=== PATIENT | male | born 1950 | race Caucasian/White ===

== ENCOUNTER 2018-05-04 05:45 | Day surgery (SDC) | payer MEDICARE, OTHER ==
[~2018-05-04] VITALS: Ht 185.4 cm; Wt 73.6 kg
--- NOTE | ~2018-05-04 | OP ---
PATIENT NAME: DERRICK TORRES MEDICAL RECORD: [id number] :54 LOCATION:D[facility] ADMISSION DATE: SURGEON: CASEY ESPARZA MD DATE OF OPERATION: 05/04/2018 SURGEON: Casey Esparza MD ANESTHESIA: MAC by Lion Pereira CRNA. PREOPERATIVE DIAGNOSIS: Elevated PSA of 4.9. PROCEDURE: Transrectal ultrasound and prostate biopsy. FINDINGS: 29 gram prostate. Extensive hypoechoic areas at bilateral bases. Large collection of prostatic stones at the left base. BLOOD LOSS: None. CLINICAL HISTORY: This is a 67-year-old male, who was recently found to have an elevated PSA level of 4.9. He does not have a family history of prostate cancer. He comes today to have a prostate biopsy performed. He is allergic to PENICILLIN, PHENERGAN, and PROPRANOLOL. He was given IV Levaquin condenser tester to the OR. DESCRIPTION OF PROCEDURE: The patient was given IV sedation. He was placed into dorsal lithotomy position. The transrectal ultrasound probe was introduced. We identified the prostate size at 29 grams. Extensive hypoechoic areas were noted in both bases of the prostate. There was also an extensive layer of prostatic stones on the left base. Sextant biopsies were obtained with at least 3 cores from each sextant. I tried to target the hypoechoic area specifically during the biopsy process. Once all the specimens were obtained, the procedure was terminated. The patient was brought back to his preoperative holding area. I will see him in followup next week to review the pathology results with him. TRANSINT:[id number] Voice Confirmation ID: [id number] DOCUMENT ID: [id number] CASEY ESPARZA MD at 1532 CC: [id number] DICTATION DATE: 05/04/18904 WRIST CLOSER: 05/04/18 1141 [facility] 05/04/18 [place] [id number] [place] [id number]
[~2018-05-04 05:45] MED LIST: BACTRIM DS TABL1 TAB; BACTROBAN 22 GM22 GM TOPICAL; BREO ELLIPTA 11 EACH INH; CATAPRES0.1 MG PO; ENDOCET 10-3251 TAB; HYDROCODONE-APA1 TAB; LEVAQUIN750 MG PO; NORCO 7.5/325 T1 TA1 PO; PROAIR HFA8.5 GM INH; PROPRANOLOL HCL20 MG PO; VIBRAMYCIN 100100 MG PO
[2018-05-04 06:23] LABS: HEMATOCRIT 36.9 % (42.0-54.0); HEMOGLOBIN 12.1 g/dL (13.5-17.5); MCH 28.2 pg (26.0-34.0); MCHC 32.8 g/dL (31.0-37.0); MEAN PLATELET VOLUME 11.3 fL (7.4-10.4); RBC 4.29 10x6/uL (4.20-6.10)
[2018-05-04] MEDS ORDERED: BACTRIM DS TABL1 TAB PO (07:38)
[2018-05-04] MEDS ORDERED: HYDROCODONE-APA1 TAB PO (07:40)
[2018-05-04 07:53] VITALS: BP 111/73; Ht 185.4 cm; Wt 73.6 kg
== END 2018-05-04 09:45 | disposition home or self-care (01) ==
LOC: D.OPS 05:45 → D.PAN 08:05 → D.OPS 08:15
PROVIDERS: Anesthesiology
DX: R97.20 Elevated prostate specific antigen [PSA] (principal)

== ENCOUNTER → 2018-06-09 11:09 | Outpatient (CLI) | payer MEDICARE, OTHER ==
[2018-05-04 07:53] VITALS: BMI 21.4
[~2018-06-09 11:09] MED LIST changes: +BACTRIM DS TABL1 TAB PO; +HYDROCODONE-APA1 TAB PO
== END | disposition home or self-care (01) ==
LOC: D.CT 11:09
DX: R63.4 Abnormal weight loss (principal)

== ENCOUNTER 2019-01-12 14:37 | Inpatient (IN) | payer MEDICARE, OTHER ==
[2019-01-12] VITALS (8 sets, daily range): BP systolic 163–198; BP diastolic 63–78; BMI 21.8
[2019-01-12] MEDS ORDERED: FLOMAX0.4 MG PO (14:43)
[2019-01-12 15:31] LABS: BASOPHILS 0.3 % (0-2); EOSINOPHILS 0 % (0-7); HEMATOCRIT 40.9 % (42.0-54.0); HEMOGLOBIN 13.9 g/dL (13.5-17.5); IMMATURE GRANULOCYTES 9.4 % (0-5); LYMPHOCYTES 9.7 % (15-50); MCH 28.8 pg (26.0-34.0); MCV 84.7 fL (80.0-100.0); MEAN PLATELET VOLUME 11.4 fL (7.4-10.4); NEUTROPHILS 59.6 % (40-80); RBC 4.83 10x6/uL (4.20-6.10); RDW 15.6 % (11.5-14.5); WBC 14.3 10x3/uL (4.8-10.8)
[2019-01-12 15:32] LABS: PLATELET COUNT 145 10x3/uL (130-400)
[2019-01-12 16:17] LABS: ALBUMIN 4.5 g/dL (3.4-5.0); ALKALINE PHOSPHATASE 76 U/L (46-116); ALT (SGPT) 28 U/L (10-68); AMYLASE - SERUM 55 U/L (25-115); BILIRUBIN - TOTAL 0.97 mg/dL (0.2-1.3); CALC OSMOLALITY 281 mosm/kg (275-300); CARBON DIOXIDE 24.2 mmol/L (21.0-32.0); CHLORIDE - SERUM 103 mmol/L (98-107); GLUCOSE 107 mg/dL (74-106); LIPASE 75 U/L (73-393); POTASSIUM - SERUM 3.4 mmol/L (3.5-5.1); PROTEIN - SERUM 8.5 g/dL (6.4-8.2); SODIUM 140 mmol/L (136-145); UREA NITROGEN 20 mg/dL (7-18); eGFR NON AFRICAN AMERICAN 79 mL/min (90-120)
[2019-01-12 16:18] LABS: TROPONIN-I < 0.017 ng/mL (0.000-0.060)
[2019-01-12 16:40] LABS: APPEARANCE CLEAR (CLEAR); BILIRUBIN NEGATIVE (NEGATIVE); COLOR STRAW (YELLOW); GLUCOSE NEGATIVE (NEGATIVE); KETONE SMALL mg/dL (NEGATIVE); NITRITE NEGATIVE (NEGATIVE); PROTEIN NEGATIVE (NEGATIVE); UROBILINOGEN NORMAL (NORMAL)
[2019-01-12 16:42] LABS: AMORPHOUS SEDIMENT >1+ /lpf (NONE SEEN); BACTERIA FEW /hpf (NONE SEEN); EPITHELIAL CELLS NSEEN /hpf (0-5); RED CELLS - URINE 0-5 /hpf (0-5); WHITE CELLS - URINE 0-5 /hpf (0-5)
[2019-01-12] MEDS ORDERED: ZOFRAN8 MG PO (18:37)
[2019-01-13] VITALS: BP 144/60
[2019-01-13 04:00] VITALS: BP 108/51
[2019-01-13 06:40] LABS: CALC OSMOLALITY 285 mosm/kg (275-300); CALCIUM 8.2 mg/dL (8.5-10.1); CARBON DIOXIDE 22.3 mmol/L (21.0-32.0); CHLORIDE - SERUM 109 mmol/L (98-107); CREATININE - SERUM 0.9 mg/dL (0.6-1.3); GLUCOSE 101 mg/dL (74-106); POTASSIUM - SERUM 3.2 mmol/L (3.5-5.1); SODIUM 143 mmol/L (136-145); eGFR NON AFRICAN AMERICAN 90 mL/min (90-120)
[2019-01-13 06:47] LABS: HEMATOCRIT 37.4 % (42.0-54.0); HEMOGLOBIN 12.7 g/dL (13.5-17.5); MCH 28.9 pg (26.0-34.0); MCV 85.2 fL (80.0-100.0); MEAN PLATELET VOLUME 11.8 fL (7.4-10.4); PLATELET COUNT 102 10x3/uL (130-400); RBC 4.39 10x6/uL (4.20-6.10); UREA NITROGEN 14 mg/dL (7-18); WBC 34.8 10x3/uL (4.8-10.8)
[2019-01-13 08:10] LABS: LYMPHOCYTES 8 % (15-50); MONOCYTES 11 % (2-11); NEUTROPHILS 69 % (40-80); PLATELET ESTIMATE DECREASED; PLATELET MORPHOLOGY GIANT PLTS PRESENT
[2019-01-13 08:11] LABS: SMUDGE CELLS 2+; TEAR DROP CELLS 2+
[2019-01-13 08:44] VITALS: BP 137/58
[2019-01-13 12:21] LABS: BASOPHILS 0.4 % (0-2); EOSINOPHILS 0 % (0-7); HEMATOCRIT 35.2 % (42.0-54.0); IMMATURE GRANULOCYTES 11.9 % (0-5); LYMPHOCYTES 7.5 % (15-50); MCHC 34.1 g/dL (31.0-37.0); MEAN PLATELET VOLUME 11.4 fL (7.4-10.4); MONOCYTES 26.8 % (2-11); NEUTROPHILS 53.4 % (40-80); PLATELET COUNT 109 10x3/uL (130-400); RBC 4.14 10x6/uL (4.20-6.10); RDW 15.9 % (11.5-14.5); WBC 27.2 10x3/uL (4.8-10.8)
[2019-01-13 12:35] LABS: ALBUMIN 3.5 g/dL (3.4-5.0); ALKALINE PHOSPHATASE 58 U/L (46-116); BILIRUBIN - TOTAL 0.82 mg/dL (0.2-1.3); CALC OSMOLALITY 282 mosm/kg (275-300); CALCIUM 7.9 mg/dL (8.5-10.1); CARBON DIOXIDE 21.8 mmol/L (21.0-32.0); CHLORIDE - SERUM 109 mmol/L (98-107); CREATININE - SERUM 0.8 mg/dL (0.6-1.3); GLUCOSE 114 mg/dL (74-106); PROTEIN - SERUM 6.6 g/dL (6.4-8.2); SODIUM 141 mmol/L (136-145); UREA NITROGEN 15 mg/dL (7-18); eGFR NON AFRICAN AMERICAN > 90 mL/min (90-120)
[2019-01-13 12:36] LABS: ALT (SGPT) 20 U/L (10-68); POTASSIUM - SERUM 3.7 mmol/L (3.5-5.1)
[2019-01-13 12:48] VITALS: BP 97/62
[2019-01-13 13:19] LABS: COLOR YELLOW (YELLOW)
[2019-01-13 13:20] LABS: APPEARANCE CLEAR (CLEAR); BILIRUBIN NEGATIVE (NEGATIVE); GLUCOSE 50 mg/dL (NEGATIVE); KETONE MODERATE mg/dL (NEGATIVE); NITRITE NEGATIVE (NEGATIVE); PROTEIN TRACE mg/dL (NEGATIVE); UROBILINOGEN NORMAL (NORMAL)
[2019-01-13 13:21] LABS: AMORPHOUS SEDIMENT <1+ /lpf (NONE SEEN); RED CELLS - URINE 0-5 /hpf (0-5)
[2019-01-13 16:17] VITALS: BP 137/60
[2019-01-13 19:56] VITALS: BP 152/73
[2019-01-14 05:33] LABS: HEMATOCRIT 34.9 % (42.0-54.0); HEMOGLOBIN 11.8 g/dL (13.5-17.5); MCHC 33.8 g/dL (31.0-37.0); MCV 85.7 fL (80.0-100.0); MEAN PLATELET VOLUME 11.4 fL (7.4-10.4); PLATELET COUNT 102 10x3/uL (130-400); RBC 4.07 10x6/uL (4.20-6.10); RDW 16.1 % (11.5-14.5); WBC 13.2 10x3/uL (4.8-10.8)
[2019-01-14 05:44] LABS: ALBUMIN 3.4 g/dL (3.4-5.0); ALKALINE PHOSPHATASE 51 U/L (46-116); ALT (SGPT) 16 U/L (10-68); BILIRUBIN - TOTAL 0.74 mg/dL (0.2-1.3); CALC OSMOLALITY 283 mosm/kg (275-300); CHLORIDE - SERUM 110 mmol/L (98-107); CREATININE - SERUM 0.8 mg/dL (0.6-1.3); GLUCOSE 88 mg/dL (74-106); PROTEIN - SERUM 6.5 g/dL (6.4-8.2); SODIUM 143 mmol/L (136-145); UREA NITROGEN 12 mg/dL (7-18); eGFR NON AFRICAN AMERICAN > 90 mL/min (90-120)
[2019-01-14 07:40] LABS: EOSINOPHILS 1 % (0-7); LYMPHOCYTES 7 % (15-50); MONOCYTES 11 % (2-11); NEUTROPHILS 52 % (40-80); PLATELET ESTIMATE DECREASED
[2019-01-14 08:59] VITALS: BP 158/69
[2019-01-14] MEDS ORDERED: PROTONIX40 MG PO (10:06)
[2019-01-14] MEDS ORDERED: DOXYCYCLINE HY100 M2 PO (10:06)
[2019-01-14] MEDS ORDERED: FLORAJEN3 CAPS460 MG PO (10:06)
--- NOTE | 2019-01-14 13:38 | MORECARE ---
CASE MANAGEMENT DISCHARGE SUMMARY PATIENT: DERRICK TORRES UNIT: [id number] ADM DATE: 01/13/19 AGE: 68 : 54 SEX: M ROOM/BED: D.2227 AUTHOR: ERICK VILLAFUERTE PHYSICIAN: REFERRING PHYSICIAN: OSMAN SUAZO DO DATE OF SERVICE: 01/14/19 Discharge Plan Patient Name: DERRICK [facility]ORRES [facility] [facility] 1950 Planned Disposition: Home Anticipated Discharge Date: 01/14/19 Discharge Date: 01/14/2019 Expected LOS: 1 Initial Reviewer: [email or web address] Initial Review Date: 01/12/2019 Generated: 01/14/19 2:37 pm Comments DCP- Discharge Planning Updated by [email or web address]: Danielle Hernandez on 01/14/19 12:[address] LATE ENTRY 1115 CM WENT TO ASSESS PATIENT NEEDS. HAD BEEN WITH ANOTHER PATIENT. THE NURSE STATED THE PATIENT HAD JUST LEFT. CM HAD REVIEWED HIS VISIT. NO APPARENT NEED FOR DISCHARGE. NURSE STATES PATIENT WAS ANXIOUS FOR DISCHARGE. Patient Name: DERRICK TORRES Page [id number] at 1338 All edits/amendments must be made on the electronic document DICTATION DATE: 01/14/191336 MANUFACTURING ENGINEERING PROFESSOR: PADMINI 01/14/19 1337 RPT#: [id number] DC DATE:01/14/19 STATUS: DIS IN [facility] [address] [place] [address] END OF REPORT
== END 2019-01-14 11:06 | disposition home or self-care (01) | DRG 868 ==
LOC: D.ER 14:37 → D.EDHOLD 19:02 → D.MS 19:08
PROVIDERS: Emergency Medicine; Family Medicine; ADMIT Family Medicine
DX: A77.40 Ehrlichiosis, unspecified (principal); D61.818 Other pancytopenia; R11.2 Nausea with vomiting, unspecified; E86.0 Dehydration; D64.9 Anemia, unspecified; E87.6 Hypokalemia; I10 Essential (primary) hypertension

== ENCOUNTER → 2019-10-10 18:19 | Outpatient (CLI) | payer MEDICARE, OTHER ==
[2019-01-12 22:50] VITALS: BMI 21.8
[~2019-10-10 18:19] MED LIST changes: +DOXYCYCLINE HY100 M2 PO; +FLOMAX0.4 MG PO; +FLORAJEN3 CAPS460 MG PO; +PROTONIX40 MG PO; +ZOFRAN8 MG PO
== END | disposition home or self-care (01) ==
LOC: D.LABREF 18:19
PROVIDERS: ATTEND Orthopaedic Surgery
DX: M19.019 Primary osteoarthritis, unspecified shoulder (principal)